=== PATIENT | male | born 1965 | race Two or more races ===

== ENCOUNTER → 2021-08-25 | Outpatient (CLI) | payer BC ==
[~2021-08-25] MED LIST: SODIUM CHLORIDE 0.9% 50 ML IVPB ONE; SODIUM CHLORIDE 0.9% 500 ML 500 ML in EMPTY BAG 1 BAG IV PRN; SOTROVIMAB (EUA) 500 MG in SODIUM CHLORIDE 0.9% 100 ML IVPB ONE
[2021-08-25 14:41] VITALS: RESP 16; TEMP 99.5
[2021-08-25 15:24] VITALS: BP 163/81; PULSE 92
== END ==
LOC: PROCWHC3 14:21
PROVIDERS: ATTEND Internal Medicine
DX: U07.1 COVID-19 (principal)
CPT/HCPCS: 96360; Q0247; M0247

== ENCOUNTER → 2021-09-21 | Outpatient (CLI) | payer BC ==
[2021-09-21 22:50] LABS: HCT 38.9 % (39.6-50.0); HGB 12.6 g/dL (13.0-17.0); MCHC 32.4 g/dL (32.0-37.0); MCV 95.8 fL (80.0-97.0); Mean Platelet Volume 10.7 fL (9.5-12.2); NRBC Per 100 WBC 0 /100 WBCS (0.0-0.0); Platelet Count 230 X 10*3/uL (140-440); RBC 4.06 X 10*6/uL (4.40-5.60); RDW 13.1 % (11.5-14.5); WBC 8.61 X 10*3/uL (4.50-10.00)
== END | disposition home or self-care (01) ==
LOC: LABWHC1 16:02
PROVIDERS: ATTEND Internal Medicine
DX: R71.0 Precipitous drop in hematocrit (principal)
CPT/HCPCS: 36415; 85027

== ENCOUNTER → 2021-09-28 | Outpatient (CLI) | payer BC ==
[2021-09-28 23:22] LABS: HCT 38.6 % (39.6-50.0); HGB 12.8 g/dL (13.0-17.0); MCH 31.6 pg (27.0-32.0); MCHC 33.2 g/dL (32.0-37.0); MCV 95.3 fL (80.0-97.0); Mean Platelet Volume 10.3 fL (9.5-12.2); NRBC Per 100 WBC 0 /100 WBCS (0.0-0.0); Platelet Count 254 X 10*3/uL (140-440); RBC 4.05 X 10*6/uL (4.40-5.60); RDW 13.4 % (11.5-14.5); WBC 7.63 X 10*3/uL (4.50-10.00)
[2021-09-28 23:48] LABS: % Iron Saturation 18.54 (15.00-50.00)
[2021-09-29 01:28] LABS: Appearance,Urine Clear (Clear); Bilirubin,Urine Negative (Negative); Blood,Urine Negative (Negative); Color,Urine Yellow (Yellow); Ketones,Urine Negative (Negative); Leukocyte Esterase,Urine Negative (Negative); Nitrite,Urine Negative (Negative); PH, Urine 5.5 (5.0-8.0); Protein,Urine Negative (Negative); Urobilinogen,Urine 0.2 (0.2,1.0)
== END | disposition home or self-care (01) ==
LOC: LABWHC1 16:24
PROVIDERS: ATTEND Internal Medicine
DX: D64.9 Anemia, unspecified (principal)
CPT/HCPCS: 36415; 81003; 83540; 83550; 84443; 85027

== ENCOUNTER → 2021-10-26 | Outpatient (CLI) | payer BC ==
[2021-10-26 22:26] LABS: Basophils # (A) 0.06 X 10*3/uL (0.00-0.10); Basophils % (A) 0.8 %; Eosinophils # (A) 0.17 X 10*3/uL (0.04-0.35); Eosinophils % (A) 2.4 %; HCT 37.9 % (39.6-50.0); HGB 12.7 g/dL (13.0-17.0); Immature Grans, Automated 0.3 %; MCH 31.8 pg (27.0-32.0); MCHC 33.5 g/dL (32.0-37.0); MCV 94.8 fL (80.0-97.0); Mean Platelet Volume 10.6 fL (9.5-12.2); Monocytes # (A) 0.86 X 10*3/uL (0.20-1.00); NRBC Per 100 WBC 0 /100 WBCS (0.0-0.0); Neutrophils # (A) 4.28 X 10*3/uL (1.80-7.70); Neutrophils % (A) 59.5 %; Platelet Count 221 X 10*3/uL (140-440); RDW 13.2 % (11.5-14.5); WBC 7.19 X 10*3/uL (4.50-10.00)
[2021-10-26 22:31] LABS: % Iron Saturation 27.35 (15.00-50.00)
== END | disposition home or self-care (01) ==
LOC: LABWHC1 16:14
PROVIDERS: ATTEND Internal Medicine
DX: D50.9 Iron deficiency anemia, unspecified (principal)
CPT/HCPCS: 36415; 83540; 83550; 85025

== ENCOUNTER → 2024-01-11 | Outpatient (CLI) | payer BC ==
--- NOTE | 2024-01-11 16:30 | US ---
EXAMINATION TYPE: US liver DATE OF EXAM: 01/11/2024 COMPARISON: NONE CLINICAL INDICATION: Male, 58 years old with history of R74.8 ABNORMAL LEVELS OF OTHER SERUM ENZYMES; TECHNIQUE: Multiple sonographic images of the right upper quadrant are obtained. FINDINGS: EXAM MEASUREMENTS: Liver Length: 18 cm Gallbladder Wall: 0.23 cm CBD: 0.32 cm Right Kidney: 10.0 x 4.5 x 3.8 cm [employer] NOTES: Pancreas: Tail obscured by overlying bowel gas Liver: Slight increase in size Gallbladder: hyperechoic focus measuring 0.72 cm with slight movement in decubitus position Evidence for sonographic Peralta's sign: No CBD: wnl Right Kidney: wnl The visualized portions of the pancreas are within normal limits. The tail is obscured by overlying b owel gas. Mild enlargement of the liver which is diffusely echogenic. This appears limits evaluation for small intrahepatic masses. No gross evidence of mass. No intrahepatic biliary duct dilatation. Ch olelithiasis demonstrated. No wall thickening or surrounding fluid identified. Negative sonographic M urphy sign. Common bile duct is within normal limits. Right kidney demonstrate no evidence of hydrone phrosis, nephrolithiasis, or solid mass. IMPRESSION: 1. Hepatomegaly and hepatic steatosis. 2. Cholelithiasis without ultrasound evidence for acute cholecystitis.
== END | disposition home or self-care (01) ==
LOC: RADUSWWP 07:16
PROVIDERS: ATTEND Family Medicine
DX: K76.0 Fatty (change of) liver, not elsewhere classified (principal); K80.20 Calculus of gallbladder without cholecystitis without obstruction; R74.8 Abnormal levels of other serum enzymes
CPT/HCPCS: 76705